=== PATIENT | male | born 1965 | race Caucasian/White ===

== ENCOUNTER 2025-02-16 14:34 | Emergency (ER) | payer SELFPAY ==
[2025-02-16 14:37] VITALS: BP 97/66
[2025-02-16 14:56] LABS: % Basophils 0.4 % (0-2); % Eosinophils 0.2 % (0-6); % Immature Granulocytes 0.4 % (0-0.5); % Lymphocytes 16.4 % (20.5-51.1); % Monocytes 3.9 % (1.7-9.3); % Neutrophils 78.7 % (42.2-75.2); Absolute Basophils 0.1 10^3/uL (0-0.2); Absolute Immature Granulocytes 0.1 10^3/uL (0-0.05); Absolute Lymphocytes 2.3 10^3/uL (1.2-3.4); Absolute Monocytes 0.5 10^3/uL (0.1-0.6); Absolute Neutrophils 10.8 10^3/uL (1.4-6.5); Hematocrit 44.4 % (39.0-52.0); Hemoglobin 15.2 g/dL (13.0-18.0); Mean Corp Hgb Conc. 34.2 g/dL (33.0-37.0); Mean Corpuscular Hgb 30.5 pg (27.0-31.0); Mean Platelet Volume 9.5 fL (7.4-10.4); Nucleated Red Blood Cells % 0 % (-); Platelet Count 328 10^3/uL (130-400); Red Blood Cell Count 4.99 10^6/uL (4.70-6.10); Red Cell Dist. Width 12.8 % (11.5-14.5); White Blood Cell Count 13.8 10^3/uL (4.8-10.8)
[2025-02-16 15:11] LABS: ALT (SGPT) 21 U/L (0-50); AST (SGOT) 24 U/L (17-59); Albumin 4.3 g/dl (3.5-5.0); Alkaline Phosphatase 38 U/L (38-126); Blood Urea Nitrogen 20 mg/dl (9-20); Calcium 9.8 mg/dl (8.4-10.2); Carbon Dioxide 29 mmol/L (22-30); Chloride 103 mmol/L (98-107); Glucose 130 mg/dl (70-99); Potassium 4.8 mmol/L (3.5-5.1); Sodium 140 mmol/L (135-145); Total Bilirubin 0.7 mg/dl (0.2-1.3); Total Protein 7.3 g/dl (6.3-8.2); eGFR > 60.00
--- NOTE | 2025-02-16 16:54 | ED.GENMED ---
History of Present Illness
General
Chief Complaint: Back Pain
Source: patient
Exam Limitations: none
Time Seen by Provider: 02/16/25 16:18
Nursing documentation reviewed up to this point in time: agreed with
History of Present Illness
History of Present Illness:
Patient presents to ED from urgent care center after an x-ray revealed rib fracture. However, secondary to significant pain and mechanism of injury, patient referred to ED for further evaluation and treatment. Patient states that he was pushing a
heavy ladder, when he ran into a raised curb and the ladder pushed back onto his left side of rib. Denies falling down. Denies shortness of breath. Denies any other injuries. Denies loss of sensation or weakness. Denies difficulty with
ambulation.
Review of Systems
Review of Systems
Allergies reviewed?: Yes
All Other Systems: ROS reviewed and negative except as documented in HPI and ROS
Constitutional: Reports no symptoms
EENT: Reports no symptoms
Respiratory: Reports no symptoms; Denies trouble breathing
Cardiac: Reports no symptoms
ABD/GI: Reports no symptoms; Denies nausea or vomiting
Musculoskeletal: Reports other (rib pain)
Skin: Reports no symptoms
Neurological: Reports no symptoms
Phy Exam
Physical Exam
Physical Exam:
Physical Exam
General: mild painful distress, not acutely ill. afebrile
Head: nc/at. eomi
Neck: supple. normal range of motion.
Heart: s1/s2 regular rate and rhythm, no murmur.
Lungs: no acute respiratory distress. clear bilaterally. left lower chest wall tenderness to palpation, without deformity/swelling/ecchymosis
Abdomen: normal bowel sounds. not tender.
Neuro: alert and oriented x 3. no focal neurological deficits
Skin: no rash
Psychiatric: well kept. interactive and cooperative
Extremities: no edema. no calf tenderness.
Course
Orders/Labs/Results
Orders:
Orders
02/16/25 14:39
CT Chest/abd/pel W Iv Cont Urgent
Comment:
Reason For Exam: rib fracture with back pain, rule out splenic inj
02/16/25 14:46
Complete Blood Count/With Diff Urgent
Comprehensive Metabolic Panel Urgent
02/16/25 16:52
Incentive Spirometry [Rx Incentive Spirometry] [RESP] Urgent
Frequency: q1h while awake
Abnormal Lab Results
02/16/25
14:46
WBC 13.8 H 10^3/uL
(4.8-10.8)
Abs Immat Gran (auto) 0.1 H 10^3/uL
(0-0.05)
Absolute Neuts (auto) 10.8 H 10^3/uL
(1.4-6.5)
Neutrophils % 78.7 H %
(42.2-75.2)
Lymphocytes % 16.4 L %
(20.5-51.1)
Glucose 130 H mg/dl
(70-99)
02/16/25 14:46
02/16/25 14:46
Vital Signs
Initial and Last Documented VS:
Initial Vital Signs
Temp Pulse Resp BP Pulse Ox
98.7 F 63 17 97/66 96
02/16/25 14:37 02/16/25 14:37 02/16/25 14:37 02/16/25 14:37 02/16/25 14:37
Last Documented Vital Signs
Temp Pulse Resp BP Pulse Ox
98.7 F 63 17 97/66 96
02/16/25 14:37 02/16/25 14:37 02/16/25 14:37 02/16/25 14:37 02/16/25 14:37
MDM/Problems Addressed
MDM/Problems Addressed:
CT report reviewed and discussed with patient.
Patient will follow-up with work comp physician upon discharge, for continual evaluation and treatment.
Incentive spirometer provided to patient with instructions, at time of discharge, to the care of his .
*Critical Care Note
Total Time (30-74mins, 75-104mins- exclusive of procedures): Not Applicable
ED Attending Note
-
Portions of this chart may have been created with voice recognition software.� Occasional wrong word or��sound alike� substitutions may have occurred due to the inherent limitations of voice recognition software.
Discharge Plan
Departure
Patient Disposition: Home (Routine Discharge)
Date of Disposition: 02/16/25
Time of Disposition: 16:58
Patient with high blood pressure during this ER visit?: No
Condition: Good
Discharge Problem:
Fracture of rib
Instructions: How to use an incentive spirometer, Rib fracture or bruised rib - ED discharge instructions
Prescriptions:
New
oxycodone-acetaminophen [Percocet] 5-325 mg Tablet
1 tab PO Q6HPRN PRN (Reason: pain) Qty: 12 0RF
Referrals:
NONE,* [Family Provider] -
Stand Alone Forms: Return to Work
Activity Restrictions/Additional Instructions:
As discussed, please follow-up with your work comp physician for reevaluation, prior to returning to work without restrictions. Your prescription has been electronically to [facility] pharmacy in [place].
Interventions
Interventions:
*Risk Screen - Suicide Last Done: 02/16/25 17:29
*General Assessment Last Done: 02/16/25 14:40
*Neglect/Abuse Screening Last Done: 02/16/25 14:40
*ED- Fall Risk Assessment Last Done: 02/16/25 16:06
*ED COVID-19 Vaccine History Last Done: 02/16/25 14:40
*Nursing Disposition Last Done: 02/16/25 17:29
ED-Musculoskeletal Assessment Last Done: 02/16/25 16:06
Discharge Date and Time
Discharge Date/Time: 02/16/25 17:30
Print Language: PANAMANIAN
== END 2025-02-16 17:30 | disposition home or self-care (01) ==
LOC: EMR 14:34
PROVIDERS: Physician Assistant Medical; EMERGENCY PHYSICIAN Emergency Medicine
DX: S22.32XA Fracture of one rib, left side, initial encounter for closed fracture (principal); W22.8XXA Striking against or struck by other objects, initial encounter
CPT/HCPCS: 99284; 71260; 74177; 80053; 85025; Q9967